=== PATIENT | female | born 1985 | race African-American/Black ===

== ENCOUNTER 2017-01-14 12:30 | Emergency (ER) | payer MEDICAID, OTHER ==
[~2017-01-14] VITALS: Ht 172.7 cm; Wt 68.0 kg
[~2017-01-14 12:30] MED LIST: PROT40 PO; SUCR1TAB PO
[2017-01-14] MEDS ORDERED: MORPHINE SULFATE 4 MG/ML CPJ (NOT FOR IM USE) IV STA (13:17)
[2017-01-14] MEDS ORDERED: SODIUM CHLORIDE 0.9% 1,000 ML IV ONE (13:17)
[2017-01-14] MEDS ORDERED: ONDANSETRON HCL 4MG/2ML VIAL IV STA (13:17)
[2017-01-14 14:01] LABS: HEMATOCRIT. 39.1 % (36.0-48.0); HEMOGLOBIN. 13.4 g/dL (12.0-16.0); MEAN CORPUSCULAR HEMOGLOBIN 32.3 pg (28.0-32.0); MEAN CORPUSCULAR HGB CONC 34.3 g/dL (31.0-37.0); MEAN CORPUSCULAR VOLUME 94.2 fL (81.0-99.0); MEAN PLATELET VOLUME 8.2 fl (7.4-10.4); PLATELET 261 x1000/uL (130-400); RED BLOOD CELL COUNT 4.15 mill/uL (4.2-5.4); RED CELL DISTRIBUTION WIDTH 13.1 % (11.6-14.6); WHITE BLOOD COUNT 7.9 x1000/uL (4.5-11.0)
[2017-01-14 14:05] LABS: CLARITY URINE CLEAR (CLEAR); COLOR URINE YELLOW (YELLOW); GLUCOSE URINE NEGATIVE (NEGATIVE); KETONES URINE 4+ (NEGATIVE); LEUKOCYTE ESTERASE URINE 1+ (NEGATIVE); NITRITE URINE NEGATIVE (NEGATIVE); OCCULT BLOOD URINE NEGATIVE (NEGATIVE); PROTEIN URINE 1+ (NEGATIVE); SPECIFIC GRAVITY URINE 1.029 (1.005-1.030)
[2017-01-14 14:07] LABS: DIFFERENTIAL COMMENT 1
[2017-01-14 14:08] LABS: CHLORIDE 110 mEq/L (98-107); INDEX HEMOLYSI 1 (1-3); INDEX ICTERIC 1 (1-4); INDEX LIPEMIC 1 (1-3)
[2017-01-14 14:16] LABS: ALANINE AMINOTRANSFERASE 23 IU/L (13-61); ALBUMIN 3.7 g/dL (3.4-5.0); ANION GAP 14; CALCIUM 8.5 mg/dL (8.5-10.1); CARBON DIOXIDE 20 mEq/L (21-32); ETHANOL BLOOD < 10 mg/dL; LIPASE 87 IU/L (73-393); UREA NITROGEN BLOOD 13 mg/dL (7-21); eGFR > 60 mL/min (>60)
[2017-01-14 14:26] LABS: MUCUS URINE 1+ /lpf (< = 2+); SQUAMOUS EPITHELIAL CELL URINE 1+ /lpf (RARE/1+)
[2017-01-14 14:27] LABS: BACTERIA URINE 1+; RBC URINE 0-2 /hpf (0-2)
[2017-01-14] MEDS ORDERED: MORPHINE SULFATE 4 MG/ML CPJ (NOT FOR IM USE) IV ONE (14:30)
[2017-01-14 14:35] LABS: *AMPHETAMINES SCREEN URINE NEGATIVE (NEGATIVE); *BARBITURATES SCREEN URINE NEGATIVE (NEGATIVE); *BENZODIAZEPINES SCREEN URINE NEGATIVE (NEGATIVE); *COCAINE SCREEN URINE NEGATIVE (NEGATIVE); ECSTASY MDMA SCREEN URINE NEGATIVE (NEGATIVE); METHADONE URINE SCREEN NEGATIVE (NEGATIVE); OPIATES URINE SCREEN NEGATIVE (NEGATIVE); PHENCYCLIDINE URINE SCREEN NEGATIVE (NEGATIVE)
[2017-01-14 14:36] LABS: CANNABINOID URINE SCREEN PRESUMTIVE POSITIVE (NEGATIVE)
[2017-01-14] MEDS ORDERED: ONDANSETRON HCL 4MG/2ML VIAL IV ONE (15:30)
[2017-01-14] MEDS ORDERED: KETOROLAC 30MG/ML VIAL IV ONE (15:30)
[2017-01-14] MEDS ORDERED: MAGNESIUM/ALUMINUM HYDROXIDE/SIMETHICONE 30ML UDC PO STA (17:12)
[2017-01-14] MEDS ORDERED: VISCOUS LIDOCAINE 2% 15 ML UDC PO STA (17:12)
[2017-01-14 17:18] VITALS: BP 131/87
[2017-01-14 17:38] LABS: PLATELET ESTIMATE NORMAL
== END 2017-01-14 17:30 | disposition home or self-care (01) ==
LOC: ER 14:04
DX: R10.13 Epigastric pain (principal); R11.2 Nausea with vomiting, unspecified; J45.909 Unspecified asthma, uncomplicated; R10.11 Right upper quadrant pain; R10.33 Periumbilical pain; Z87.19 Personal history of other diseases of the digestive system; Z87.11 Personal history of peptic ulcer disease; Z87.440 Personal history of urinary (tract) infections
CPT/HCPCS: 36415; 76705; 80053; 80305; 81001; 81025; 83690; 85025; 96361; 96374; 96375; 96376; 99285; G0482; J1885; J2270; J2405; J7030; Z7610

== ENCOUNTER 2017-03-12 20:44 | Emergency (ER) | payer MEDICAID ==
[~2017-03-12] VITALS: Ht 172.7 cm; Wt 68.0 kg
[~2017-03-12 20:44] MED LIST changes: +DIATR MEGLU/DIATRIZOATE SOLN 120ML ONE; +IOHEXOL-300 100 ML BOTTLE ONE; +SODIUM BICARBONATE 4% (2.4MEQ) 5ML VIAL IV ONE
[2017-03-12] MEDS ORDERED: MAGNESIUM/ALUMINUM HYDROXIDE/SIMETHICONE 30ML UDC PO STA (23:23)
[2017-03-12] MEDS ORDERED: SODIUM CHLORIDE 0.9% 1,000 ML IV ONE (23:23)
[2017-03-12] MEDS ORDERED: ONDANSETRON HCL 4MG/2ML VIAL IV STA (23:23)
[2017-03-12] MEDS ORDERED: PANTOPRAZOLE SODIUM 40 MG/VIAL IV STA (23:23)
[2017-03-12] MEDS ORDERED: MORPHINE SULFATE 4 MG/ML CPJ (NOT FOR IM USE) IV STA (23:23)
[2017-03-13 00:01] LABS: HEMATOCRIT. 39.4 % (36.0-48.0); HEMOGLOBIN. 13.5 g/dL (12.0-16.0); MEAN CORPUSCULAR HEMOGLOBIN 32.1 pg (28.0-32.0); MEAN CORPUSCULAR VOLUME 93.5 fL (81.0-99.0); MEAN PLATELET VOLUME 8.3 fl (7.4-10.4); PLATELET 317 x1000/uL (130-400); RED BLOOD CELL COUNT 4.21 mill/uL (4.2-5.4); RED CELL DISTRIBUTION WIDTH 13.5 % (11.6-14.6)
[2017-03-13 00:02] LABS: INR 1.1; PROTHROMBIN TIME 11.5 sec
[2017-03-13 00:03] LABS: HCG SCREEN NEGATIVE
[2017-03-13 00:12] LABS: CARBON DIOXIDE 21 mEq/L (21-32); CHLORIDE 108 mEq/L (98-107); ETHANOL BLOOD < 10 mg/dL; TROPONIN I < 0.02 ng/mL (0.00-0.04)
[2017-03-13 00:24] LABS: ATYPICAL LYMPHOCYTES 1; PLATELET ESTIMATE NORMAL
[2017-03-13 00:33] LABS: CLARITY URINE CLEAR (CLEAR); COLOR URINE YELLOW (YELLOW); GLUCOSE URINE NEGATIVE (NEGATIVE); KETONES URINE 4+ (NEGATIVE); LEUKOCYTE ESTERASE URINE 1+ (NEGATIVE); NITRITE URINE NEGATIVE (NEGATIVE); OCCULT BLOOD URINE 2+ (NEGATIVE); PROTEIN URINE 1+ (NEGATIVE); SPECIFIC GRAVITY URINE 1.034 (1.005-1.030)
[2017-03-13 00:52] LABS: *AMPHETAMINES SCREEN URINE NEGATIVE (NEGATIVE); *BARBITURATES SCREEN URINE NEGATIVE (NEGATIVE); *BENZODIAZEPINES SCREEN URINE NEGATIVE (NEGATIVE); *COCAINE SCREEN URINE NEGATIVE (NEGATIVE); METHADONE URINE SCREEN NEGATIVE (NEGATIVE); OPIATES URINE SCREEN NEGATIVE (NEGATIVE); PHENCYCLIDINE URINE SCREEN NEGATIVE (NEGATIVE)
[2017-03-13] MEDS ORDERED: MORPHINE SULFATE 4 MG/ML CPJ (NOT FOR IM USE) IV STA (00:56)
[2017-03-13] MEDS ORDERED: SODIUM CHLORIDE 0.9% 1,000 ML IV ONE (00:56)
[2017-03-13 00:59] LABS: CANNABINOID URINE SCREEN PRESUMTIVE POSITIVE (NEGATIVE)
[2017-03-13] MEDS ORDERED: CEFTRIAXONE 1 G PREMIX 50 ML IV ONE (01:00)
[2017-03-13 05:47] VITALS: BP 93/69
== END 2017-03-13 06:20 | disposition home or self-care (01) ==
LOC: ER 20:44 → CANBEDREQ 03-13 07:25
DX: R07.9 Chest pain, unspecified (principal); K21.9 Gastro-esophageal reflux disease without esophagitis; E87.2 Acidosis; K52.9 Noninfective gastroenteritis and colitis, unspecified; N39.0 Urinary tract infection, site not specified; R42 Dizziness and giddiness; J45.909 Unspecified asthma, uncomplicated; Z87.11 Personal history of peptic ulcer disease
CPT/HCPCS: 36415; 71010; 74177; 80053; 80305; 81001; 83605; 83690; 84484; 84703; 85025; 85610; 93005; 96361; 96365; 96375; 96376; 99285; C9113; G0482; J0696; J2270; J2405; J3490; J7030; Q9967; Z7610; Q9963

== ENCOUNTER 2017-12-11 15:57 | Emergency (ER) | payer MEDICAID ==
[~2017-12-11] VITALS: Ht 172.7 cm; Wt 67.0 kg
[~2017-12-11 15:57] MED LIST changes: -DIATR MEGLU/DIATRIZOATE SOLN 120ML ONE; -IOHEXOL-300 100 ML BOTTLE ONE; -SODIUM BICARBONATE 4% (2.4MEQ) 5ML VIAL IV ONE
[2017-12-11] MEDS ORDERED: IBUPROFEN 600MG TABLET PO ONE (18:00)
[2017-12-11 18:17] VITALS: BP 130/80
== END 2017-12-11 18:47 | disposition home or self-care (01) ==
LOC: ER 16:08
DX: S93.492A Sprain of other ligament of left ankle, initial encounter (principal); S89.82XA Other specified injuries of left lower leg, initial encounter; J45.909 Unspecified asthma, uncomplicated; F17.200 Nicotine dependence, unspecified, uncomplicated; W01.0XXA Fall on same level from slipping, tripping and stumbling without subsequent striking against object, initial encounter; Y93.89 Activity, other specified; Y92.010 Kitchen of single-family (private) house as the place of occurrence of the external cause
CPT/HCPCS: 73562; 73610; 81025; 99284; L1830